=== PATIENT | male | born 1960 | race Caucasian/White ===

== ENCOUNTER 2025-04-22 19:49 | Observation (INO) | payer OTHER, SELFPAY ==
[2025-04-22] VITALS (9 sets, daily range): BP systolic 136–186; BP diastolic 64–88; BMI 26.5; BMI 26.1
[2025-04-22 17:39] LABS: Hematocrit 49.8 % (39.0-52.0); Hemoglobin 16.6 g/dL (13.0-18.0); Mean Corp Hgb Conc. 33.3 g/dL (33.0-37.0); Mean Corpuscular Volume 93.6 fL (80.0-94.0); Nucleated Red Blood Cells % 0 % (-); Platelet Count 165 10^3/uL (130-400); Red Cell Dist. Width 13.0 % (11.5-14.5)
--- NOTE | 2025-04-22 17:39 | ED.GENMED ---
History of Present Illness
<Alfonzo Serrano PA-C - Last Filed: 04/22/25 18:14>
General
Chief Complaint: Heart Rate Problem
Source: patient
Exam Limitations: none
Time Seen by Provider: 04/22/25 17:21
History of Present Illness
History of Present Illness:
64-year-old male with history of hypertension hee-sohhtxn-xxrdhibmx diabetes presents in referral from his cardiology office for further evaluation. He was due to have a routine colonoscopy today however in preop he was noticed to have slow heart
rate. He was then sent to his poultry service technician who saw him and was referred here. Patient denies chest pain or shortness of breath. No lightheadedness or fever. No prior cardiac issues. He has never been here before. No other complaints at this
time
Phy Exam
<Alfonzo Serrano PA-C - Last Filed: 04/22/25 18:14>
Physical Exam
Physical Exam:
General: Well-appearing male no acute respiratory distress
HEENT normal cephalic atraumatic
Heart: bradycardic
lungs: Clear no wheeze
Abdomen is soft nontender nondistended
Extremities: No cyanosis or edema
Skin warm no rash
Course
<KRISH Vieira Last Filed: 04/22/25 18:14>
Orders/Labs/Results
Orders:
Orders
04/22/25 17:13
EKG [Electrocardiogram (*1)] Urgent
Reason for Study: Bradycardia / Tachycardia
EKG- Treatment ONCE
04/22/25 17:31
Complete Blood Count/With Diff Urgent
Comprehensive Metabolic Panel Urgent
TSH Reflex To Free T4 Urgent
Abnormal Lab Results
04/22/25
17:31
MCH 31.2 H pg
(27.0-31.0)
MPV 10.5 H fL
(7.4-10.4)
Lymphocytes % 19.0 L %
(20.5-51.1)
BUN 23 H mg/dl
(9-20)
Creatinine 1.5 H mg/dL
(0.7-1.3)
Glucose 171 H mg/dl
(70-99)
04/22/25 17:31
04/22/25 17:31
Vital Signs
Initial and Last Documented VS:
Initial Vital Signs
Temp Pulse Resp BP Pulse Ox
98.1 F 39 20 171/82 100
04/22/25 17:08 04/22/25 17:08 04/22/25 17:08 04/22/25 17:08 04/22/25 17:08
Last Documented Vital Signs
Temp Pulse Resp BP Pulse Ox
98.1 F 46 15 180/70 100
04/22/25 17:08 04/22/25 17:30 04/22/25 17:30 04/22/25 17:21 04/22/25 17:43
<Sol Winters DO - Last Filed: 04/22/25 18:50>
Orders/Labs/Results
Orders:
Orders
04/22/25 17:13
EKG [Electrocardiogram (*1)] Urgent
Reason for Study: Bradycardia / Tachycardia
EKG- Treatment ONCE
04/22/25 17:31
Complete Blood Count/With Diff Urgent
Comprehensive Metabolic Panel Urgent
TSH Reflex To Free T4 Urgent
Abnormal Lab Results
04/22/25
17:31
MCH 31.2 H pg
(27.0-31.0)
MPV 10.5 H fL
(7.4-10.4)
Lymphocytes % 19.0 L %
(20.5-51.1)
BUN 23 H mg/dl
(9-20)
Creatinine 1.5 H mg/dL
(0.7-1.3)
Glucose 171 H mg/dl
(70-99)
04/22/25 17:31
04/22/25 17:31
Vital Signs
Initial and Last Documented VS:
Initial Vital Signs
Temp Pulse Resp BP Pulse Ox
98.1 F 39 20 171/82 100
04/22/25 17:08 04/22/25 17:08 04/22/25 17:08 04/22/25 17:08 04/22/25 17:08
Last Documented Vital Signs
Temp Pulse Resp BP Pulse Ox
98.1 F 46 15 180/70 100
04/22/25 17:08 04/22/25 17:30 04/22/25 17:30 04/22/25 17:21 04/22/25 17:43
<Alfonzo Serrano PA-C - Last Filed: 04/22/25 18:14>
MDM/Problems Addressed
Differential Diagnosis Includes:
Patient sent in from cardiology for evaluation of bradycardia. No complaints at this time. EKG upon triage was reviewed and demonstrates sinus bradycardia with an AV block likely Mobitz type II. Patient currently on monitor heart rate ranges from
the upper 30s to low to mid 40s
Blood pressure stable. Discussed findings with cardiology who recommended admission to hospitalist for potential pacemaker placement tomorrow given the stability of the patient otherwise
<Alfonzo Serrano PA-C - Last Filed: 04/22/25 18:14>
*Pulse Oximetry
SaO2: 100
Oxygen Mode of Delivery: Room air
Patient hypoxic: no
*Critical Care Note
Total Time (30-74mins, 75-104mins- exclusive of procedures): Not Applicable
<Alfonzo Serrano PA-C - Last Filed: 04/22/25 18:14>
Update Note
Update Note:
I discussed with cardiology who recommend the patient get admitted to the hospital under the hospitalist service for involvement of electrophysiology tomorrow for placement of pacemaker. Patient remained stable here in emergency room. Discussed
with ED attending.
ED Attending Note
<Alfonzo Serrano PA-C - Last Filed: 04/22/25 18:14>
-
Portions of this chart may have been created with voice recognition software.� Occasional wrong word or��sound alike� substitutions may have occurred due to the inherent limitations of voice recognition software.
<Sol Winters DO - Last Filed: 04/22/25 18:50>
ED Attending Note
Patient seen and examined by attending physician: Yes
I performed the substantive portion of visit, reviewed & personally made and approve the management plan that is documented in note by myself or FELIPA.: Yes
I performed a history and physical exam of patient and discussed management with resident, I reviewed resident's note and agree with documented findings and plan of care.: Yes
ED Attending Note:
64-year-old male without any known significant cardiac history presenting for concern of bradycardia. Patient was getting a routine colonoscopy today and during pretesting, was found to have a heart rate in the 30s to 40s. Patient was able to get
into see the poultry service technician nearby who advised that he come to the hospital for heart block. No spot 6 months ago he was told that he had a low heart rate, however no specific symptoms. Reports that randomly will get some dizzy episodes and
'blackout 'for a few seconds. Denies any chest pain or difficulty breathing or any palpitations.
Vital signs on arrival are significant for bradycardia. On exam patient appears well, no acute distress. Bradycardic on cardiac exam without any additional abnormal findings. No signs of volume overload, lungs clear to auscultation. Patient is
awake. EKG does appear abnormal with bradycardia, concerning findings of Mobitz type II. In discussion with cardiology, recommendation for admission for possible pacemaker tomorrow. Patient and family updated.
Discharge Plan
Departure
Patient Disposition: Admit
Date of Disposition: 04/22/25
Time of Disposition: 18:13
Presentation/result/management discussed w/ accepting MD/DO: Hospitalist
Discharge Problem:
Bradycardia
Interventions
Interventions:
*General Assessment Last Done: 04/22/25 17:08
*Neglect/Abuse Screening Last Done: 04/22/25 17:08
*Risk Screen - Suicide (C-SSRS) Last Done: 04/22/25 17:08
ED- Cardiac Assessment Last Done: 04/22/25 17:39
ED- Pulmonary Assessment Last Done: 04/22/25 17:39
Discharge Date and Time
Print Language: FAROESE
[2025-04-22 17:52] LABS: ALT (SGPT) 22 U/L (0-50); AST (SGOT) 26 U/L (17-59); Albumin 4.7 g/dl (3.5-5.0); Alkaline Phosphatase 69 U/L (38-126); Blood Urea Nitrogen 23 mg/dl (9-20); Calcium 9.0 mg/dl (8.4-10.2); Carbon Dioxide 30 mmol/L (22-30); Chloride 99 mmol/L (98-107); Estimated Creatinine Clearance 47 ml/min; Glucose 171 mg/dl (70-99); Potassium 4.4 mmol/L (3.5-5.1); Sodium 137 mmol/L (135-145); Total Protein 7.7 g/dl (6.3-8.2); eGFR 51.03
--- NOTE | 2025-04-22 18:54 | HPS.HSE ---
Family Physician
-
Family Physician: Felix Maldonado
Chief Complaint
-
bradycardia
History of Present Illness
Patient is a 64-year-old male with past medical history significant for essential hypertension, type 2 diabetes, dyslipidemia and second degree AV block, Mobitz II who presented to [facility] ED for evaluation of bradycardia. Patient was scheduled for
routine colonoscopy today when he arrived and placed on the monitor patient was bradycardic. GI referred patient to see legal intern today, who referred patient to ED for evaluation. patient reports intermittent lightheadedness for last 6 months.
Denies any shortness of breath, cough, chest pain or palpitations.
Medical History
Past Medical History
Past Medical History: Reports Other
Additional Past Medical History:
essential hypertension
type 2 diabetes
dyslipidemia
second degree AV block, Mobitz II
Past Surgical History: Reports None
Social History
Tobacco: Former Smoker (>40 pack year history, quit 6 months ago)
Alcohol: None
Drug: None
Personal:
Living: With Family
Family History
Family History: Not pertinent
Allergies / Home Medications
Allergies reflects when Allergies were last updated in [facility] [employer].
Home Medications with original date entered in [facility] [employer]
Allergy/Medication List:
Allergies
Allergy/AdvReac Type Severity Reaction Status Date / Time
No Known Allergies Allergy Unverified 04/22/25 17:07
Home Medications
atorvastatin 20 mg tablet 20 mg PO DAILY 04/22/25
empagliflozin 25 mg tablet (Jardiance) 25 mg PO DAILY 04/22/25
glipizide 10 mg tablet 10 mg PO DAILY 04/22/25
metformin 1,000 mg tablet 1,000 mg PO BID 04/22/25
olmesartan 40 mg-hydrochlorothiazide 12.5 mg tablet 1 tab PO DAILY 04/22/25
pioglitazone 45 mg tablet 45 mg PO DAILY 04/22/25
Review of Systems
-
History Source: Patient
Constitutional: Denies Fever or Chills
EENT: Denies Sore Throat
Respiratory: Denies Cough or Trouble Breathing
Cardiac: Denies Chest Pain, Diaphoresis, Palpitations or Syncope
Abdomen/GI: Denies Abdominal Pain, Nausea, Vomiting or Diarrhea
: Denies Dysuria, Frequency or Urgency
Musculoskeletal: Denies Joint Pain
Skin: Denies Rash
Neurological: Reports Dizzy; Denies Headache, Weakness or Numbness
Physical Exam
Vital Signs
Vital Signs
Temp Pulse Resp BP Pulse Ox
98.1 F 46 15 180/70 100
04/22/25 17:08 04/22/25 17:30 04/22/25 17:30 04/22/25 17:21 04/22/25 17:43
Physical Exam
General: Well Developed, Well Nourished, No Apparent Distress, Comfortable and Conversant
HEENT: NormoCephalic, Moist mucous membranes, PERRLA, Nose Appears Normal and Ears Appear Normal
Respiratory: Clear and Non Labored Respirations
Cardiac: S1/S2, Regular Rhythm and Bradycardia; No Murmur
GI: Soft, Non Tender, Non Distended and Normal Bowel Sounds
Musculoskeletal: No Clubbing and No Cyanosis
Skin: Warm and IV/Catheter Site
Neuro: Awake and AO x 3
Psych: Calm
Laboratory Results
-
04/22/25 17:31
04/22/25 17:31
Laboratory Results
Total Bilirubin 0.8 mg/dl (0.2-1.3) 04/22/25 17:31
AST 26 U/L (17-59) 04/22/25 17:31
ALT 22 U/L (0-50) 04/22/25 17:31
Alkaline Phosphatase 69 U/L (38-126) 04/22/25 17:31
Data Reviewed
-
Medical Tests (Nuc Med, Echo, EKG etc): Report Reviewed by me (EKG: Critical Test Result: AV Block SINUS RHYTHM WITH 2ND DEGREE A-V BLOCK (MOBITZ II) WITH 2:1 A-V CONDUCTION LEFT AXIS DEVIATION NON-SPECIFIC INTRA-VENTRICULAR CONDUCTION BLOCK
INFERIOR INFARCT , AGE UNDETERMINED CANNOT RULE OUT ANTEROSEPTAL INFARCT , AGE UNDETERMINED)
Lab Data: Labs Reviewed by me (BUN 23, creat 1.5, est CrCl 47, eGFR 51.03)
Impression/Plan
-
IMPRESSION/PLAN:
#symptomatic bradycardia
#second degree AV block, Mobitz II
intermittent lightheadedness for past 6 months
BUN 23, creat 1.5, est CrCl 47, eGFR 51.03
EKG: Critical Test Result: AV Block
SINUS RHYTHM WITH 2ND DEGREE A-V BLOCK (MOBITZ II) WITH 2:1 A-V CONDUCTION
LEFT AXIS DEVIATION
NON-SPECIFIC INTRA-VENTRICULAR CONDUCTION BLOCK
INFERIOR INFARCT , AGE UNDETERMINED
CANNOT RULE OUT ANTEROSEPTAL INFARCT , AGE UNDETERMINED
- Admit to IVU
- Consult Cardiology
- NPO at midnight for pacer tomorrow
#essential hypertension
- continue olmesartan-HCTZ
#type 2 diabetes
- AccuCheck AC & HS
- SSI
- hold PO medications while NPO
#dyslipidemia
- continue atorvastatin
Code status: full code
DVT prophylaxis: SCDs
--- NOTE | 2025-04-22 19:05 | W.PN.UPDATE ---
Update Note
Progress Note Update
This note serves as an addendum to the H&P by campaign management specialist Kassy Bell
HPI�
64M Former heavy smoker ( 1/2 PPD ) DMT2, HTN on ARB
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 Leon at [facility])
- Due for colonoscopy today but was noted to have bradycardia then sent to cards who sent here.
- EKG shows jerrica with Mobitz II.
- BP is stable.
No prior HX TN, cardiac cath
ROS
- Interment episodes of dizziness for last 6 months
- Denied Fall and syncope
- denied CP
- denied SoB
Relevant VS
Temp Pulse Resp BP Pulse Ox
98.1 F 46 15 180/70 100
04/22/25 17:08 04/22/25 17:30 04/22/25 17:30 04/22/25 17:21 04/22/25 17:43
PE
Gen: NAD, not orthopneic
Neck: supple, no JVD
Lungs: CTA
Cor: Bradycardia S1 S2 No murmur
Abdomen:�soft benign
BUTT MAKER: AAO3 NFND
MS:No edema
Psych:Nl mood and affeect
Relevant Data�
04/22/25
17:31
WBC 6.9
Hgb 16.6
Plt Count 165
BUN 23 H
Creatinine 1.5 H
eGFR 51.03
Glucose 171 H
TSH (Reflex) 1.59
EKG
SINUS RHYTHM WITH 2ND DEGREE A-V BLOCK (MOBITZ II) WITH 2:1 A-V CONDUCTION
LEFT AXIS DEVIATION
NON-SPECIFIC INTRA-VENTRICULAR CONDUCTION BLOCK
INFERIOR INFARCT , AGE UNDETERMINED
CANNOT RULE OUT ANTEROSEPTAL INFARCT , AGE UNDETERMINED
ABNORMAL ECG
NO PREVIOUS ECGS AVAILABLE
NO PRIOR hospitalist admission:
ASSESSMENT & PLAN
Pending Rx reconciliation
Symptomatic bradycardias
Bradycardia due to Mobitz II.
- CBC acrd consulted
- recommended admit to IVU
- NPO and EP to place pacer tomorrow.
HX pHTN
- c/w ARB
T2DM
- Hold OHG agents due to NPO
DVT Px: SCD
Full code
IP/Obs
[2025-04-22 20:57] LABS: Glucose - Point of Care 136 mg/dl (70-99)
--- NOTE | 2025-04-22 22:26 | CON.CAR ---
Consultation
Consultation Request
Date/Time Consultation Requested: 04/22/2025
Date/Time Consultation Performed: 04/22/2025
Requesting Provider: Alfonzo Serrano PA-C
Performing Provider: Dr. Aguayo
Reason for Consultation: Heart block
Medical History
-
Chief Complaint: Heart block
History of Present Illness:
64-year-old male with hypertension, hyperlipidemia, diabetes, CKD, and chronic cigarette use who was evaluated for the first time today by Nautical Instrument Mechan[employer] Dr. Sebastián Morrison after being found to have Mobitz 2 heart block. The patient was scheduled undergo
colonoscopy today, which ended up being canceled as the heart monitor showed that he was having dropped beats; the patient was then urgently referred to Cardiology. It appears that the patient has been having some low heart rates at home. The
patient has some fatigue, but denies chest pain, shortness of breath, or palpitations.
Past Medical History
Past Medical History: HTN, Hypercholesterolemia and NIDDM
Past Surgical History: None
Social History
Tobacco: Former Smoker (>40 pack years; quit 6 months ago)
Alcohol: None
Drug: None
Personal:
Living: With Family
Family History
Family History: Reviewed & Not Pertinent
Allergies / Home Medications
Allergy/AdvReac Type Severity Reaction Status Date / Time
No Known Allergies Allergy Unverified 04/22/25 17:07
�Medication �Instructions �Recorded �Confirmed �Type
atorvastatin 20 mg tablet 20 mg PO DAILY 04/22/25 04/22/25 History
empagliflozin 25 mg tablet 25 mg PO DAILY 04/22/25 04/22/25 History
(Jardiance)
glipizide 10 mg tablet 10 mg PO DAILY 04/22/25 04/22/25 History
metformin 1,000 mg tablet 1,000 mg PO BID 04/22/25 04/22/25 History
olmesartan 40 1 tab PO DAILY 04/22/25 04/22/25 History
mg-hydrochlorothiazide 12.5 mg
tablet
pioglitazone 45 mg tablet 45 mg PO DAILY 04/22/25 04/22/25 History
Review of Systems
-
History Source: Patient
All other systems: Negative unless noted
Physical Exam
Vital Signs
Temp Pulse Resp BP Pulse Ox
98.8 F 39 16 144/72 97
04/22/25 21:08 04/22/25 20:15 04/22/25 21:08 04/22/25 20:00 04/22/25 21:08
Lab Results
04/22/25 17:31
04/22/25 17:31
Physical Exam
General: No Apparent Distress
HEENT: Anicteric
Respiratory: Clear
Cardiac: S1/S2
Breast: N/A
GI: Soft
Rectal: Deferred by Provider
Musculoskeletal: No Clubbing, No Cyanosis and No Edema
Skin: Warm
Neuro: AO x 3
Psych: Calm
Impression / Plan
-
64-year-old male with hypertension, hyperlipidemia, diabetes, CKD, and chronic cigarette use who was evaluated for the first time today by Nautical Instrument Mechanic Dr. Sebastián Morrison after being found to have Mobitz 2 heart block. The patient was scheduled undergo
colonoscopy today, which ended up being canceled as the heart monitor showed that he was having dropped beats; the patient was then urgently referred to Cardiology. It appears that the patient has been having some low heart rates at home. The
patient has some fatigue, but denies chest pain, shortness of breath, or palpitations.
Mobitz 2/high degree AV block:
- The patient is on no rate-controlling medications at home.
- Permanent pacemaker implantation is indicated; currently hemodynamically stable.
- The patient will be evaluated by EP cardiology for permanent pacemaker implantation tomorrow.
- Will obtain an echocardiogram tomorrow morning prior to permanent pacemaker implantation.
- Continue tire recapper; atropine at bedside.
- NPO after midnight.
Abnormal EKG:
- In addition to heart block, the patient has inferior infarct pattern and intraventricular conduction delay.
- Obtain echocardiogram prior to device implantation.
Hypertension:
- Fairly controlled
- Continue hydrochlorothiazide and losartan.
Hyperlipidemia:
- Continue atorvastatin.
- Check lipid panel.
Diabetes:
- Apparently uncontrolled; per food operations manager note, the A1c was 8.
- Management as per primary Hospitalist team.
Data Reviewed
-
EKG: Tracing Personally Visualized and interpreted (Sinus rhythm with Mobitz 2 second-degree AV block with 2-1 AV conduction, nonspecific intraventricular conduction delay, inferior infarct pattern.)
Labs: Labs Reviewed by me
--- NOTE | 2025-04-22 23:02 | PTCARENOTE ---
Received pt into room 2250 from ED RN via stretcher at 2030. Family at bedside at the time. Tele placed on pt, Second degree Type 2. HR 40's-50's. Pacer pads applied to pt as precaution, pt educated. SBP elevated, 160's-170's. Owen العراقي NP
made aware, no further orders at this time. pt asymptomatic, denies lightheadedness/dizziness, CP, or SOB. Oriented pt to room and call de la torre. Admission and assessment completed as documented. Educated pt on NPO status after midnight, verbalizes
understanding. Encouraged pt to call RN for assistance ambulating and with any questions/concerns. Call de la torre within reach.
[2025-04-23] VITALS (24 sets, daily range): BP systolic 147–193; BP diastolic 74–123; BMI 26.1
[2025-04-23 03:06] LABS: Hematocrit 45.5 % (39.0-52.0); Hemoglobin 15.4 g/dL (13.0-18.0); Mean Corp Hgb Conc. 33.8 g/dL (33.0-37.0); Mean Corpuscular Volume 92.9 fL (80.0-94.0); Platelet Count 167 10^3/uL (130-400); Red Cell Dist. Width 13.0 % (11.5-14.5)
[2025-04-23 04:23] LABS: Hepatitis C Antibody Negative (Negative)
[2025-04-23 05:40] LABS: Blood Urea Nitrogen 18 mg/dl (9-20); Calcium 9.1 mg/dl (8.4-10.2); Carbon Dioxide 29 mmol/L (22-30); Chloride 102 mmol/L (98-107); Estimated Creatinine Clearance 78 ml/min; Glucose 127 mg/dl (70-99); Potassium 4.3 mmol/L (3.5-5.1); Sodium 138 mmol/L (135-145); eGFR > 60.00
[2025-04-23 05:55] LABS: Glucose - Point of Care 116 mg/dl (70-99)
[2025-04-23] MEDS: NOVOLOG FLEXPEN-LOW RESISTANCE SC ×3 (05:56→22:05)
[2025-04-23] MEDS: ORETIC 12.5 MG PO (08:12)
[2025-04-23] MEDS: LIPITOR 20 MG PO (08:13)
[2025-04-23] MEDS: COZAAR 100 MG PO (08:13)
--- NOTE | 2025-04-23 08:32 | W.PN.CD ---
Translation Services
-
Preferred Language: Somali
Senior Field Engineer service via: Video
Senior Field Engineer's ID Number: [id number]
Comment: Language Line
Today's Communication / Plan
-
Echo
Device implant, hope today pending echo results and if needed cath results
Impression / Plan
-
64-year-old male with hypertension, hyperlipidemia, diabetes, CKD, and chronic cigarette use who was evaluated for the first time today by [employer] Dr. Sebastián Morrison after being found to have Mobitz 2 heart block. The patient was scheduled undergo
colonoscopy today, which ended up being canceled as the heart monitor showed that he was having dropped beats; the patient was then urgently referred to Cardiology. It appears that the patient has been having some low heart rates at home. The
patient has some fatigue, but denies chest pain, shortness of breath, or palpitations.
Mobitz 2/high degree AV block:
- For echo
- If echo unremarkable => Dual pacer
- If echo with severe valve disease or significant LV dysfunction => Cath first and device when medially appropriate
- Senior Field Engineer used to obtain informed consent
Abnormal EKG:
- In addition to heart block, the patient has inferior infarct pattern and intraventricular conduction delay.
- Obtain echocardiogram prior to device implantation.
Hypertension:
- Fairly controlled
- Continue hydrochlorothiazide and losartan.
Hyperlipidemia:
- Continue atorvastatin.
- Check lipid panel.
Diabetes:
- Apparently uncontrolled; per lap regulator note, the A1c was 8.
- Management as per primary Hospitalist team.
Physical Exam
Vital Signs/Labs
Vital Signs
Temp Pulse Resp BP Pulse Ox
98.7 F 56 12 167/75 95
04/23/25 08:00 04/23/25 08:13 04/23/25 08:00 04/23/25 08:13 04/23/25 02:51
04/22/25 04/23/25 04/24/25
06:59 06:59 06:59
Actual Weight 77.9 kg
04/23/25 02:46
04/23/25 05:17
Physical Exam
Constitutional: No acute distress
EENT: Anicteric
Cardiovascular: Pedal edema is absent and Rhythm/rate is irregular
Respiratory: Respiratory effort normal and Lungs clear to auscul.
GI: Soft and Distention absent
Neuro/Psych: AO x 3
Data Reviewed
-
Date of Service: April 23, 2025
[2025-04-23 08:51] LABS: Glycohemoglobin (HgbA1c) 7.4 % (4.0-5.9)
--- NOTE | 2025-04-23 09:30 | W.PN.HOSP.TC ---
Today's Communication/Plan
-
see PN
Assessment / Plan
Assessment / Plan
64yo Citizen [place] speaking M with PMHX of DM, HLD, HTN sent by maintenance engineer oil field after he was found low HR and significant HTN while getting ready for colonoscopy in GI office. Found 2nd degree type 2 AVB.
A/P:
#2nd degree type 2 AVB
Cardio consult: w/u for PPM vs ICD/PPM
Echo
IF concern for decreased EF - will need cath
telemetry
transq PPM if symptomatic
Atropin PRN
avoid CCB and BB until PPM
#DM type 2 with neuropathy
Accuchecks, Insulin SS, DM diet
hold oral antiglycemics
HgbA1c 7.4%
#ABDOUL on admission
possibly combination of HCTZ and bradycardia as improved on IVF
Consider to switch HCTZ to another antyhypertensive
#EssentiaL HTN
Titrate meds to target
DVT ppx SCDs since planned for PPM
Full code
I have spent at least 51min reviewing chart, test results, communication with consultants, and providing direct patient care. COmmunicated to patient in his [place] language
Anticipated Discharge: 24 - 48 hours
Subjective/Interval History
-
Date of Service: April 23, 2025
Objective Data
-
Labs:
Laboratory Results
04/23/25 04/23/25 04/23/25
02:46 04:13 05:17
WBC 5.6
Hgb 15.4
Hct 45.5
Plt Count 167
Sodium Cancelled Cancelled 138
Potassium Cancelled Cancelled 4.3
Chloride Cancelled Cancelled 102
Carbon Dioxide Cancelled Cancelled 29
BUN Cancelled Cancelled 18
Creatinine Cancelled Cancelled 0.9
Glucose Cancelled Cancelled 127 H
Calcium Cancelled Cancelled 9.1
Vital Signs:
Vital Signs
Temp Pulse Resp BP Pulse Ox
98.7 F 56 12 167/75 97
04/23/25 08:00 04/23/25 08:13 04/23/25 08:00 04/23/25 08:13 04/23/25 08:00
I&O
04/22/25 04/23/25 04/24/25
06:59 06:59 06:59
Intake Total 240 / 240
Output Total 675 / 675
Balance -435 / -435
Review of Systems
-
History Source: Patient
All other systems: Reviewed and negative
Physical Exam
-
General: No Apparent Distress
HEENT: Normocephalic
Cardiac: Regular Rhythm and Bradycardic
GI: Soft, Nontender and Nondistended
Musculoskeletal: No Clubbing, No Cyanosis and No Edema
Neuro: Awake, Alert, Oriented, AO x 3 and No Motor Deficits
Psych: Calm
--- NOTE | 2025-04-23 10:34 | CM ---
Chart reviewed. Patient is independent of ADLS, lives with his and daughter, 2 STH, 1st level set up, 0 RAMEZ, 0 DME. Plan is for the patient to return home. CM to follow
[2025-04-23 11:28] LABS: Glucose - Point of Care 121 mg/dl (70-99)
--- NOTE | 2025-04-23 14:00 | ITS.CL.PACE ---
[facility] - Pacemaker Implant
Pacemaker Implant
Procedure Report:
Date of Procedure: April 23, 2025.
Procedure: Pacemaker Implantation. Left upper extremity venogram.
Indication: The pacemaker is for the treatment of nonreversible symptomatic bradycardia due to second degree atrioventricular block (Mobitz II).
Performing physician: Taz Oconnor MD, [facility].
Implants:
Pulse Generator: Medtronic; Model# W1DR01; Serial# [id number].
RA Lead: Medtronic; Model# 5076-52cm; Serial# [id number].
RV Lead: Medtronic; Model# 3830-69cm; Serial# [id number].
Technique: A time out was performed. A 10 mL upper extremity venogram demonstrated patent left axillary and subclavian veins. The procedure site was identified. The patient was anesthetized by the anesthesia service. Preoperative cefazolin was
administered. The patient was prepped and draped in the usual fashion. Local anesthetic was applied to the left prepectoral subcutaneous tissue. A 3 inch incision was made along the left deltopectoral groove. Dissection was carried to the fascia.
The left cephalic vein was easily isolated and proximal and distal control with 2-0 Vicryl suture. Using a micropuncture needle to access the cephalic vein under direct visualization a wire was advanced into the central circulation. A 7 Fr
introducer was placed to allow two 0.35 J wires to be advanced. The leads were introduced with hemostatic peel away introducer sheaths. The RV lead was placed using utilizing the [place] His delivery catheter ([id number]) that was advanced to the
left bundle area as confirmed by fluoroscopy in the SLOVAK and HARRIS projections. The lead tip was advanced. PVC morphology was reviewed. When a satisfactory location was identified (W pattern observed) the lead was screwed into position with serial
turns. Septal engagement was confirmed with gentle torque applied to the guide sheath. After each series of turns (2-3) unipolar sensed morphology and impedance, and paced morphology of V1 was analyzed. The lead was further advanced until
satisfactory morphology and electrical characteristics were confirmed. The RV lead was placed in the first location evaluated. The long guiding sheath was cut and removed from the RV without change in lead position, impedance, sensing, or capture.
The ventricular lead was secured to the pectoralis muscle and fascia with two 0-silk sutures. The atrial lead was placed in the right atrial appendage. 8 volt pacing from each lead did not capture the diaphragm. The atrial leads was secured to the
pectoralis muscle and fascia. A subcutaneous pocket was created with Bovie cautery. Hemostasis was excellent. The leads were appropriately attached to the device. The pocket was irrigated with antibiotic solution. The device and leads were placed in
the pocket. The incision was closed in three layers with absorbable suture. Steri-strips and a silver impregnated dressing were placed. Estimated blood loss was less than 5 ml. There were no complications. Fluoroscopy time 5.1 minutes and DAP 1.55
GyCM2. The device was then interrogated after skin closure.
Lead Analysis:
RA lead: P: 1.8 mV; Threshold: 2.5 V @ 0.4 ms; Impedance: 630 ohms.
RV lead: R: 18 mV; Threshold: 0.75 V @ 0.4 ms; Impedance: 720 ohms.
Paced QRS characteristics: V1 has Qr morphology and measures 111 ms in duration, LVAT (stim to peak V5/V6) is 86 ms, and R peak V1 to R peak V6 is 33 ms.
Final Programming: DDDR 50-130 bpm.
Conclusion: Uncomplicated Medtronic dual chamber pacemaker implant. The pacing system is MRI conditional. Successful conduction system lead placement.
Recommendation: Routine post pacemaker care.
cc: Sebastián Morrison MD and �Felix Maldonado MD.
[2025-04-23] MEDS: NORVASC 5 MG PO (15:46)
[2025-04-23] MEDS: NOVOLOG FLEXPEN-LOW RESISTANCE 2 UNITS SC (17:11)
[2025-04-23 17:27] LABS: Glucose - Point of Care 206 mg/dl (70-99)
--- NOTE | 2025-04-23 19:26 | PTCARENOTE ---
~7991-0756: Handoff report received from ghada RN. Pt mauritian speaking, dual hose cementer used for communication. Pt AOx4, 2nd degree HB type 2, HR 30s-40s and then 70s with ambulation. SBP 160s, RA satting 97%. Pt denies pain at this time and does
not c/o dizziness. Pt NPO for PPM later today. Dr. Oconnor in to speak with patient about procedure and get consent. All needs met at this time, call de la torre within reach.
~0288-3332: No change from previous assessment. ECHO completed. L upper chest clipped and wiped with CHG and new gown in prep for PPM. Report given to CCL prior to procedure. All needs met, call de la torre within reach.
~1205: patient taken to CCL for PPM.
~4155-0376: Patient returned from CCL s/p PPM. L limb immobilzer in place, post op instructions given to patient, patient verbalized understanding. Pt AOx4, NSR with about 50% V paced beats, SBP 170-190s RA satting 96%. EKG obtained and viewed in
person by Dr. Oconnor.
TT sent to Dr. Iglesias about patient's BP, Amlodipine added and given.
~2436-1677: family at bedside. Patient taken for CXR via stretcher in stable condition.
~7443-8290: SBP 150 after receiving amlodipine. All other vital signs stable. Patient does not c/o pain. Messaged pharmacy to get insulin order timings changed to ACHS. All needs met at this time, call de la torre within reach. Handoff report given to
ghada RN.
[2025-04-23] MEDS: ANCEF 5 IV (20:30)
[2025-04-23 23:55] LABS: Glucose - Point of Care 176 mg/dl (70-99)
--- NOTE | 2025-04-24 00:29 | PTCARENOTE ---
Pt. V-paced with NSR on the monitor, other vitals stable. Left chest wall PPM site dressing intact with very small area old drainage without growth, no hematoma, radial pulse normal. Pt. denies any pain/discomfort, resting quietly.
[2025-04-24 04:18] VITALS: BP 162/100
[2025-04-24 04:29] VITALS: BMI 25.3
[2025-04-24] MEDS: ANCEF 5 IV (04:30)
[2025-04-24 04:36] VITALS: BP 170/96
[2025-04-24 04:44] LABS: Hematocrit 49.8 % (39.0-52.0); Hemoglobin 16.9 g/dL (13.0-18.0); Mean Corp Hgb Conc. 33.9 g/dL (33.0-37.0); Mean Corpuscular Volume 92.1 fL (80.0-94.0); Platelet Count 161 10^3/uL (130-400); Red Cell Dist. Width 12.9 % (11.5-14.5)
[2025-04-24 05:11] LABS: Blood Urea Nitrogen 16 mg/dl (9-20); Calcium 9.5 mg/dl (8.4-10.2); Carbon Dioxide 26 mmol/L (22-30); Chloride 100 mmol/L (98-107); Estimated Creatinine Clearance 88 ml/min; Glucose 136 mg/dl (70-99); Potassium 4.1 mmol/L (3.5-5.1); Sodium 135 mmol/L (135-145); eGFR > 60.00
[2025-04-24] MEDS: NORVASC 5 MG PO (05:19)
[2025-04-24] MEDS: ORETIC 12.5 MG PO (05:19)
[2025-04-24 07:00] VITALS: BP 164/111
[2025-04-24 08:10] LABS: Glucose - Point of Care 130 mg/dl (70-99)
[2025-04-24] MEDS: NOVOLOG FLEXPEN-LOW RESISTANCE SC (08:11)
[2025-04-24 08:37] VITALS: BP 162/97
[2025-04-24] MEDS: COZAAR 100 MG PO (08:37)
[2025-04-24] MEDS: LIPITOR 20 MG PO (08:37)
--- NOTE | 2025-04-24 10:08 | PTCARENOTE ---
Patient received at change of shift. Assisted OOB to wash up this morning. Left chest wall aquacell with scant amount of old drainage, unchanged from previous marking, surrounding area soft to palpation, no evidence of hematoma. Radial pulse
palpable. The patient reports mild tenderness at the PPM incision but this is presently tolerable for him. Primarily Vpaced on telemetry with underlying SR. SaO2 on RA 95-96%. Carelink express completed per Dr. Oconnor's request. Plan of care
discussed. Call de la torre within reach. Care ongoing.
[2025-04-24 10:58] VITALS: BP 163/87
--- NOTE | 2025-04-24 11:33 | W.PN.HOSP.TC ---
Today's Communication/Plan
-
dc
Assessment / Plan
Assessment / Plan
64yo Iranian speaking M with PMHX of DM, HLD, HTN sent by dance therapist after he was found low HR and significant HTN while getting ready for colonoscopy in GI office. Found 2nd degree type 2 AVB, had Echo that showed no acute findings and patient
had PPM placed on 04/23/25, monitored overnight and as per Card advise - can be discharged for outpatient follow up with his dance therapist. HCTZ stopped antonio to ABDOUL on admisson and Norvasc started as BP still poorly controlled. Further titration
should be done as outpatient in the terms of next weeks. Medically stable for DC home
A/P:
#2nd degree type 2 AVB
Cardio consult: w/u for PPM vs ICD/PPM
Echo: Normal biventricular size and systolic function without regional wall motion abnormality. LVEF 57%. No significant valvular disease.
IF concern for decreased EF - will need cath
telemetry
transq PPM if symptomatic
Atropin PRN
avoid CCB and BB until PPM
#DM type 2 with neuropathy
Accuchecks, Insulin SS, DM diet
hold oral antiglycemics
HgbA1c 7.4%
#ABDOUL on admission
possibly combination of HCTZ and bradycardia as improved on IVF
Consider to switch HCTZ to another antihypertensive
#EssentiaL HTN
Titrate meds to target
DVT ppx SCDs since planned for PPM
Full code
I have spent at least 36min reviewing chart, test results, communication with consultants, and providing direct patient care. COmmunicated to patient in his ely shoshone language
Anticipated Discharge: Today
Subjective/Interval History
-
Date of Service: April 24, 2025
Objective Data
-
Labs:
Laboratory Results
04/24/25
04:14
WBC 9.1
Hgb 16.9
Hct 49.8
Plt Count 161
Sodium 135
Potassium 4.1
Chloride 100
Carbon Dioxide 26
BUN 16
Creatinine 0.8
Glucose 136 H
Calcium 9.5
Vital Signs:
Vital Signs
Temp Pulse Resp BP Pulse Ox
98.2 F 84 18 163/87 92
04/24/25 10:56 04/24/25 11:00 04/24/25 10:56 04/24/25 10:58 04/24/25 10:58
I&O
04/23/25 04/24/25 04/25/25
06:59 06:59 06:59
Intake Total 240 / 240 480 / 480
Output Total 675 / 675 400 / 400
Balance -435 / -435 480 / 480 -400 / -400
Review of Systems
-
History Source: Patient
All other systems: Reviewed and negative
Physical Exam
-
General: No Apparent Distress
HEENT: Normocephalic
GI: Soft, Nontender and Nondistended
Skin: Warm
Neuro: Awake, Alert, Oriented and AO x 3
Psych: Calm
--- NOTE | 2025-04-24 11:39 | W.PN.CD ---
Today's Communication / Plan
-
Stable for discharge from cardiac standpoint.
Follow-up for incision check in 1 to 2 weeks
Routine follow-up at Dr. Morriosn's office
Impression / Plan
-
64-year-old male with hypertension, hyperlipidemia, diabetes, CKD, and chronic cigarette use who was evaluated for the first time today by Spinal Surgeon Dr. Sebastián Morrison after being found to have Mobitz 2 heart block. The patient was scheduled undergo
colonoscopy today, which ended up being canceled as the heart monitor showed that he was having dropped beats; the patient was then urgently referred to Cardiology. It appears that the patient has been having some low heart rates at home. The
patient has some fatigue, but denies chest pain, shortness of breath, or palpitations.
Mobitz 2/high degree AV block:
- ECHO 04/23/25 - LVEF 55-60%
- s/p dual chamber conduction system PPM by Dr. Oconnor
- Now a sensed V paced rhythm noted.
- Chest x-ray shows excellent atrial and ventricular lead placement
- Pacemaker pocket is stable without any fluctuation or hematoma
Hypertension:
- Blood pressure is poorly controlled.
-Will increase amlodipine from 5 mg to 10 mg once a day and continue losartan 100 mg once a day.
- Continue Jardiance
Hyperlipidemia:
- Continue atorvastatin.
- Check lipid panel.
Diabetes:
- Apparently uncontrolled; per brass instrument repair technician note, the A1c was 8.
- Management as per primary Hospitalist team.
Physical Exam
Vital Signs/Labs
Vital Signs
Temp Pulse Resp BP Pulse Ox
98.2 F 84 18 163/87 92
04/24/25 10:56 04/24/25 11:00 04/24/25 10:56 04/24/25 10:58 04/24/25 10:58
04/23/25 04/24/25 04/25/25
06:59 06:59 06:59
Actual Weight 77.9 kg 75.6 kg
04/24/25 04:14
04/24/25 04:14
Physical Exam
Constitutional: No acute distress and Comfortable
EENT: Anicteric and Moist mucous membranes
Cardiovascular: Rhythm & rate is regular, Pedal edema is absent and JVD pressure is normal
Respiratory: Respiratory effort normal, Wheeze Absent and Crackles Absent
GI: Soft and Normal bowel sounds
Neuro/Psych: Alert, Oriented and AO x 3
Other: Cardiac Device Site
Data Reviewed
-
Date of Service: April 24, 2025
Medical Decision Making: Reviewed Test Results, Test Interpretation and Review of Case with other Provider
EKG: Tracing Personally Visualized and interpreted
Echo: Report Reviewed by me
X-Ray/CT/US/MRI/NUC/PET: Image Personally Visualized and interpreted
Labs: Labs Reviewed by me
Old Records: Reviewed
--- NOTE | 2025-04-24 11:40 | W.DCSUMMARY ---
Discharge Summary
Discharge Data
Date of Admission: 04/22/25
Date of Discharge: 04/24/25
-
Pending Results: No
Hospital Course
64yo Mauritian speaking M with PMHX of DM, HLD, HTN sent by sliding joint maker after he was found low HR and significant HTN while getting ready for colonoscopy in GI office. Found 2nd degree type 2 AVB, had Echo that showed no acute findings and patient
had PPM placed on 04/23/25, monitored overnight and as per Card advise - can be discharged for outpatient follow up with his sliding joint maker. HCTZ stopped antonio to ABDOUL on admisson and Norvasc started as BP still poorly controlled. Further titration
should be done as outpatient in the terms of next weeks. Medically stable for DC home
I have spent at least 36min reviewing chart, test results, communication with consultants, and providing direct patient care. COmmunicated to patient in his sleetmute language
Patient was managed for:
#2nd degree type 2 AVB
#DM type 2 with neuropathy
#ABDOUL on admission
#EssentiaL HTN
Discharge Plan
-
Patient Disposition: Home (Routine Discharge)
Discharge Diagnosis/Procedures: Pacemaker implant
Diet: Diabetic, Carb Controlled
Driving Restrictions: No driving for 1 week
Stand Alone Forms: DC Inst - Implanted Device
Referrals:
[facility]- [facility] [Provider Group] - 05/02/25 1:20 pm
Referral Note: Post device incision check appointment
Felix Maldonado MD [Family Provider, Internal Medicine] - in less than 1 week
Sebastián Morrison MD [Active, Cardiology] - in less than 1 week
Additional Discharge Medication Instructions: HOLD metformin post procedure- OK to resume on 04/25 in AM
Prescriptions:
New
losartan 100 mg Tablet
100 mg PO DAILY Qty: 30 0RF
amlodipine 10 mg Tablet
10 mg PO DAILY Qty: 30 0RF
Continued
atorvastatin 20 mg tablet
20 mg PO DAILY
glipizide 10 mg tablet
10 mg PO DAILY
pioglitazone 45 mg tablet
45 mg PO DAILY
Jardiance 25 mg Tablet
25 mg PO DAILY
Held
metformin 1,000 mg tablet
1,000 mg PO BID
Hold Instructions: until 04/25/25
Discontinued
olmesartan-hydrochlorothiazide 40-12.5 mg tablet
1 tab PO DAILY
Discharge Orders:
Discharge Patient (As Directed); Ordered 04/24/25
Ordered By: Govind Iglesias
Care Plan Goals
Care Plan Goals:
Problem: Readiness for enhanced knowledge related to diagnosis and treatment plan
Goal: Understand your diagnosis and treatment plan needs, including medications if applicable.
Instructions: Know your diagnosis, underlying causes and treatment plan options, including medications if applicable. Consult with your health care team to learn about your diagnosis and treatment plan, including medications if applicable.
Discharge Date and Time
Print Language: SETSWANA
[2025-04-24 11:52] VITALS: BP 159/97
[2025-04-24 12:35] LABS: Glucose - Point of Care 178 mg/dl (70-99)
[2025-04-24] MEDS: NOVOLOG FLEXPEN-LOW RESISTANCE 1 UNITS SC (12:39)
--- NOTE | 2025-04-24 14:15 | PTCARENOTE ---
Discussed discharge instructions with patient and family members (spouse and daughter) who verbalized understanding. Reviewed activity restrictions and change in medications. Telemetry and PIV INT removed. Post pacemaker activity restrictions
reviewed with patient. Demonstrated activity instructions to daughter and spouse. Discharged to home with daughter driving.
== END 2025-04-24 14:41 | disposition home or self-care (01) ==
LOC: IVU 19:49
PROVIDERS: Internal Medicine Cardiovascular Disease; Nurse Practitioner; Nurse Practitioner Family; Physician Assistant; ADMITTING PHYSICIAN Internal Medicine; ATTENDING PHYSICIAN Internal Medicine; CONSULT PHYSICIAN Internal Medicine; EMERGENCY PHYSICIAN Student in an Organized Health Care Education/Training Program; FAMILY PHYSICIAN Internal Medicine
PROC: 0JH606Z Insertion of Pacemaker, Dual Chamber into Chest Subcutaneous Tissue and Fascia, Open Approach (ICD-10-PCS; 2025-04-23)
PROC: 02HK3JZ Insertion of Pacemaker Lead into Right Ventricle, Percutaneous Approach (ICD-10-PCS; 2025-04-23)
PROC: 02H63JZ Insertion of Pacemaker Lead into Right Atrium, Percutaneous Approach (ICD-10-PCS; 2025-04-23)
DX: R00.1 Bradycardia, unspecified (principal); I44.1 Atrioventricular block, second degree; E11.40 Type 2 diabetes mellitus with diabetic neuropathy, unspecified; N17.9 Acute kidney failure, unspecified; E11.22 Type 2 diabetes mellitus with diabetic chronic kidney disease; E78.00 Pure hypercholesterolemia, unspecified; I12.9 Hypertensive chronic kidney disease with stage 1 through stage 4 chronic kidney disease, or unspecified chronic kidney disease; Z87.891 Personal history of nicotine dependence; Z79.84 Long term (current) use of oral hypoglycemic drugs; I45.4 Nonspecific intraventricular block
CPT/HCPCS: 33208; 71045; 80048; 80053; 82962; 83036; 84443; 85025; 85027; 86803; 93005; 93306; 99284; C1769; C1785; C1887; C1898; G0378; Q9950; Q9967